=== PATIENT | male | born 1975 | race Caucasian/White ===

== ENCOUNTER 2018-09-24 23:59 | Emergency (ER) | payer MEDICAID ==
[~2018-09-24] VITALS: Ht 172.7 cm; Wt 79.9 kg
[2018-09-25 00:05] VITALS: BP 163/97
--- NOTE | 2018-09-25 00:15 | NUR ---
C/O R SIDED NECK PAIN FOR 1 WEEK, DENIES INJURY OR TRAUMA.
[2018-09-25] MEDS ORDERED: ketorolac trometh inj. 60 MG/2 ML VIAL IM ONE (00:25)
[2018-09-25] MEDS ORDERED: cyclobenzaprine 10mg tablet PO ONE (00:25)
[2018-09-25] MEDS ORDERED: CYCL-1 PO (00:27)
== END 2018-09-25 00:33 | disposition home or self-care (01) ==
LOC: ER 09-25
DX: S13.9XXA Sprain of joints and ligaments of unspecified parts of neck, initial encounter (principal); M62.838 Other muscle spasm; Z79.899 Other long term (current) drug therapy; X58.XXXA Exposure to other specified factors, initial encounter; Y93.89 Activity, other specified; Y92.89 Other specified places as the place of occurrence of the external cause; Y99.8 Other external cause status
CPT/HCPCS: 96372; 99283; J1885

== ENCOUNTER 2019-05-06 03:21 | Emergency (ER) | payer MEDICAID ==
[~2019-05-06] VITALS: Ht 170.2 cm; Wt 72.7 kg
[~2019-05-06 03:21] MED LIST: CYCL-1 PO
[2019-05-06 03:37] VITALS: BP 158/104
[2019-05-06] MEDS ORDERED: sulfamethoxazole/trimethoprim DS (800/160mg) tablet PO ONE (04:10)
[2019-05-06] MEDS ORDERED: naproxen 500mg tablet PO ONE (04:10)
[2019-05-06] MEDS ORDERED: HYDROcodone/acetaminophen 5mg/325mg tablet PO ONE (04:10)
[2019-05-06] MEDS ORDERED: NAPR-56 PO (04:12)
[2019-05-06] MEDS ORDERED: SULF1TAB49 PO (04:12)
--- NOTE | 2019-05-06 17:51 | NUR ---
PT. CALLED STATED HE HAD LOST HIS RX. CALLED IN BACTRIM DS 1 TAB Q 12 HOURS X 10 DAYS # 20 AND NAPROXEN 500MG Q 12 HOURS #20 TO HI HAT ROD AND
== END 2019-05-06 04:30 | disposition home or self-care (01) ==
LOC: ER 03:21
DX: L03.011 Cellulitis of right finger (principal); Z72.0 Tobacco use; Z79.899 Other long term (current) drug therapy
CPT/HCPCS: 99284

== ENCOUNTER 2023-11-11 13:16 | Emergency (ER) | payer MEDICAID ==
[~2023-11-11] VITALS: Ht 170.2 cm; Wt 88.9 kg
[2023-11-11] MEDS ORDERED: DOXY100C43 PO (14:52)
[2023-11-11 15:16] VITALS: BP 134/68; PULSE 98; RESP 17; TEMP 98.3; O2SAT 98
== END 2023-11-11 15:17 | disposition home or self-care (01) ==
LOC: ER 13:17
DX: S61.231A Puncture wound without foreign body of left index finger without damage to nail, initial encounter (principal); L73.9 Follicular disorder, unspecified; Z79.899 Other long term (current) drug therapy; X58.XXXA Exposure to other specified factors, initial encounter; Y93.89 Activity, other specified; Y92.89 Other specified places as the place of occurrence of the external cause; Y99.8 Other external cause status
CPT/HCPCS: 29130; 73140; 99283

== ENCOUNTER 2024-02-25 11:40 | Emergency (ER) | payer MEDICAID ==
[~2024-02-25] VITALS: Ht 170.2 cm; Wt 81.9 kg
[2024-02-25 11:41] VITALS: BP 138/81; PULSE 94; RESP 16; TEMP 99.5; O2SAT 98
[2024-02-25] MEDS ORDERED: BENZ-38 PO (13:33)
== END 2024-02-25 13:35 | disposition home or self-care (01) ==
LOC: ER 11:40
DX: B34.9 Viral infection, unspecified (principal); Z79.899 Other long term (current) drug therapy
CPT/HCPCS: 71046; 99283